=== PATIENT | male | born 1960 | race Caucasian/White ===

== ENCOUNTER → 2018-07-29 17:02 | Outpatient (CLI) | payer BC, SELFPAY ==
--- NOTE | 2018-07-29 | DI.MRI.S_ITS ---
PROCEDURE: MR CERVICAL SPINE WO CON INDICATIONS: CERVICAL SPINE PAIN TECHNIQUE: Noncontrast sagittal T1 spin echo and T2 fast spin echo, sagittal STIR, foraminal oblique sagittal T2 fast spin echo, and axial gradient echo or T2 fast spin echo through the cervical spine. COMPARISON: None. FINDINGS: Image quality: Excellent. Alignment and Curvature: Straightening of the normal cervical lordosis Multilevel degenerative endplate sclerosis and spurring. Diffuse facet arthropathy. Bone Marrow: No evidence of fracture. T1/T2 bright presumed hemangioma in the C5 vertebral body Spinal Cord: Visualized spinal cord has normal size and signal. No cerebellar tonsillar herniation. Paraspinous Soft Tissues: No paravertebral masses. Prevertebral soft tissues are normal in thickness. C2-C3: Bilateral uncovertebral arthropathy and posterior intervening disc osteophyte complex, and facet arthropathy. No canal stenosis. No foraminal narrowing C3-C4: Bilateral uncovertebral arthropathy and posterior intervening disc osteophyte complex which is asymmetric, left greater than right, and facet arthropathy. Mild left-sided canal narrowing. No right foraminal stenosis. Severe left foraminal narrowing with associated compression of the nerve root. C4-C5: Bilateral uncovertebral arthropathy and posterior intervening disc osteophyte complex, and facet arthropathy. No central canal narrowing. No left foraminal narrowing. Mild right foraminal narrowing. C5-C6: Bilateral uncovertebral arthropathy and posterior intervening disc osteophyte complex, and facet arthropathy. Mild canal narrowing. Severe right foraminal stenosis with associated compression of the nerve root. Mild left foraminal narrowing. C6-C7: Bilateral uncovertebral arthropathy and posterior intervening disc osteophyte complex, with small superimposed central disc protrusion. Bilateral facet disease. Mild central canal narrowing. Minimal right foraminal narrowing. No left foraminal stenosis C7-T1: Normal appearance. IMPRESSION: Diffuse mild cervical spondylosis and straightening of the normal lordotic curvature. Multilevel bilateral foraminal stenoses as detailed above, most severe on the left at C3-C4, and on the right at C5-C6. Dictated by: Maicol Mcclain M.D. on 07/30/2018 at 8:39 Approved by: Maicol Mcclain M.D. on 07/30/2018 at 8:46
== END ==
PROVIDERS: Visit Provider Family Medicine
DX: M54.2 Cervicalgia (principal); M47.812 Spondylosis without myelopathy or radiculopathy, cervical region; M48.02 Spinal stenosis, cervical region
CPT/HCPCS: 72141